=== PATIENT | male | born 1950 | race Caucasian/White ===

== ENCOUNTER 2024-01-30 14:04 | Outpatient (CLI) | payer OTHER, MEDICARE, SELFPAY | END 2024-01-30 14:05 | disposition home or self-care (01) | LOC: AMB 02-04 13:20 | PROVIDERS: PCP Family Medicine; Visit Provider Student in an Organized Health Care Education/Training Program | DX: S19.9XXA Unspecified injury of neck, initial encounter (principal); R51.9 Headache, unspecified; V49.40XA Driver injured in collision with unspecified motor vehicles in traffic accident, initial encounter; Y92.410 Unspecified street and highway as the place of occurrence of the external cause | CPT/HCPCS: A0425; A0427 ==

== ENCOUNTER 2024-01-30 14:26 | Emergency (ER) | payer MEDICARE, SELFPAY ==
[2024-01-30] VITALS (28 sets, daily range): BP systolic 151–188; BP diastolic 70–86; PULSE 49–51; RESP 16–20; TEMP 36.6; O2SAT 96–99; BMI 24.4
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
== END 2024-01-30 16:09 | disposition home or self-care (01) ==
LOC: ED 16:01
PROVIDERS: Emergency Provider Emergency Medicine; PCP Family Medicine
DX: S16.1XXA Strain of muscle, fascia and tendon at neck level, initial encounter (principal); V43.52XA Car driver injured in collision with other type car in traffic accident, initial encounter
CPT/HCPCS: 70450; 71045; 72125; 99284; 99291; G0390

== ENCOUNTER 2024-11-02 09:28 | Outpatient (CLI) | payer MEDICARE, SELFPAY ==
[2024-11-02 09:56] LABS: Creatinine* 0.8 mg/dL (0.5-1.5); Estimated Glomerular Filt Rate 94 ml/min
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
== END 2024-11-02 09:29 | disposition home or self-care (01) ==
LOC: CT 09:29
PROVIDERS: PCP Family Medicine; Visit Provider Otolaryngology
DX: K13.79 Other lesions of oral mucosa (principal); M47.892 Other spondylosis, cervical region
CPT/HCPCS: 36415; 70491; 82565; Q9967